=== PATIENT | female | born 1960 | race African-American/Black ===

== ENCOUNTER 2020-07-04 13:56 | Outpatient (RCR) | payer OTHER ==
[~2020-07-04 13:56] MED LIST: LIDOCAINE VISC 2% SOLN 15 ML UDC ONE; TRYPSIN/BALSAM PERU/CASTOR OIL ONE
[2020-07-04] MEDS ORDERED: LIDOCAINE VISC 2% SOLN 15 ML UDC ONE (15:44)
== END 2020-07-26 ==
LOC: WCC 13:56
PROVIDERS: ATTEND Family Medicine Adult Medicine
DX: E11.628 Type 2 diabetes mellitus with other skin complications (principal); L89.154 Pressure ulcer of sacral region, stage 4; L89.312 Pressure ulcer of right buttock, stage 2; L89.626 Pressure-induced deep tissue damage of left heel; L89.616 Pressure-induced deep tissue damage of right heel; R33.9 Retention of urine, unspecified; D64.9 Anemia, unspecified; R47.02 Dysphasia; E43 Unspecified severe protein-calorie malnutrition; I69.951 Hemiplegia and hemiparesis following unspecified cerebrovascular disease affecting right dominant side; R78.81 Bacteremia; E78.5 Hyperlipidemia, unspecified; G40.309 Generalized idiopathic epilepsy and epileptic syndromes, not intractable, without status epilepticus; Z74.01 Bed confinement status
CPT/HCPCS: 88305; 88307; 88311